=== PATIENT | male | born 1955 | race Caucasian/White ===

== ENCOUNTER → 2024-07-08 08:38 | Outpatient (REF) | payer OTHER, SELFPAY | LOC: DHSLP 08:38 | PROVIDERS: ATTENDING PHYSICIAN Internal Medicine; FAMILY PHYSICIAN Registered Nurse | DX: G47.33 Obstructive sleep apnea (adult) (pediatric) (principal); R09.02 Hypoxemia | CPT/HCPCS: 95800 ==